=== PATIENT | male | born 1980 ===

== ENCOUNTER 2018-03-24 07:49 | Emergency (ER) | payer SELFPAY ==
[~2018-03-24] VITALS: Ht 162.6 cm; Wt 68.0 kg
[2018-03-24 07:57] VITALS: Ht 162.6 cm; Wt 68.0 kg
[2018-03-24 08:33] LABS: BASOPHIL % 0.6 % (0-2)
[2018-03-24 08:37] LABS: PLATELET COUNT 78 x10^3mcL (130-400); RED CELL DISTRIBUTION WIDTH 15.4 % (11.5-14.5)
[2018-03-24 09:02] LABS: CALCIUM 8.5 mg/dL (8.5-10.1); CARBON DIOXIDE 25.7 mmol/L (21-32); CHLORIDE SERUM 102 mmol/L (98-107); CREATININE SERUM 0.8 mg/dL (0.7-1.3); GFR1 > 60 mL/min; GLUCOSE SERUM 123 mg/dL (74-106); POTASSIUM SERUM 3.6 mmol/L (3.5-5.1); SODIUM SERUM 140 mmol/L (136-145)
[2018-03-24 09:07] LABS: ALKALINE PHOSPHATASE 103 U/L (46-116); ALT/SGPT 111 U/L (16-63); AST/SGOT 154 U/L (15-37); BILIRUBIN TOTAL 0.86 mg/dL (0.20-1.00)
[2018-03-24 09:08] LABS: TOTAL PROTEIN, SERUM 8.4 g/dL (6.4-8.2)
[2018-03-24 15:38] VITALS: BP 141/98
== END 2018-03-24 15:39 | disposition home or self-care (01) ==
LOC: ED 07:49
PROVIDERS: Emergency Medicine
DX: R53.1 Weakness (principal); K29.70 Gastritis, unspecified, without bleeding; G40.909 Epilepsy, unspecified, not intractable, without status epilepticus; Z88.0 Allergy status to penicillin
CPT/HCPCS: G0480; J2765; J3490